=== PATIENT | male | born 1950 | race African-American/Black ===

== ENCOUNTER 2024-08-02 10:33 | Inpatient (IN) | payer MEDICARE, OTHER ==
[~2024-08-02] VITALS: Ht 172.7 cm; Wt 80.2 kg
[~2024-08-02 10:33] MED LIST: 2 ANTIBIOTICS PO; HTN MED PO
[2024-08-02] MEDS ORDERED: SODIUM BICARBONATE 50 MEQ/50 ML VIAL ONE (10:44)
[2024-08-02] MEDS ORDERED: NITROGLYCERIN 50 MG/D5% WATER 250 ML ONE (10:44)
[2024-08-02] MEDS ORDERED: IOHEXOL 300 MG/ML 100 ML VIAL ONE (10:44)
[2024-08-02] MEDS ORDERED: HEPARIN SODIUM 1000 UNITS/NS 1,000 ML ONE (10:44)
[2024-08-02] MEDS ORDERED: VERAPAMIL HCL 2.5 MG/ML 2 ML VIAL ONE (10:44)
[2024-08-02] MEDS ORDERED: LIDOCAINE/PF 1% 30 ML VIAL ONE (10:44)
[2024-08-02] MEDS ORDERED: HEPARIN SODIUM,PORCINE 5,000 UNITS/ML VIAL ONE (10:45)
[2024-08-02] MEDS ORDERED: TICAGRELOR 90 MG TABLET ONE (10:45)
[2024-08-02] MEDS: HEPARIN SODIUM,PORCINE 5,000 UNITS/ML VIAL IVP ONE (10:46)
[2024-08-02] MEDS: TICAGRELOR 90 MG TABLET PO ONE (10:46)
[2024-08-02 10:54] LABS: BASOPHILS % (AUTO) 0.9 % (0.0-2.0); EOSINOPHILS % (AUTO) 1.6 % (1.0-6.0); HEMATOCRIT 34.4 % (41-53); HEMOGLOBIN 11.3 g/dL (13.5-17.5); LYMPHOCYTES # (AUTO) 1.3 K/uL (1.0-4.8); LYMPHOCYTES % (AUTO) 14.6 % (22.0-44.0); MEAN CORPUSCULAR HEMOGLOBIN 26.9 pg (26.0-34.0); MEAN CORPUSCULAR HGB CONC 32.9 G/dL (31.0-37.0); MEAN CORPUSCULAR VOLUME 82 fL (80-100); MONOCYTES # (AUTO) 0.6 K/uL (0.1-1.0); MONOCYTES % (AUTO) 6.4 % (2.0-9.0); NEUTROPHILS # (AUTO) 6.9 K/uL (1.8-7.7); NEUTROPHILS % (AUTO) 76.5 % (40.0-70.0); PLATELET COUNT (AUTO) 353 K/uL (150-450); RED BLOOD CELL COUNT(AUTO) 4.21 MIL/uL (4.50-5.90); RED CELL DISTRIBUTION WIDTH 15.2 % (11.5-14.5)
[2024-08-02 11:04] LABS: INR 1.1 (0.9-1.1); PROTHROMBIN TIME 11.4 SEC (9.4-11.6)
[2024-08-02] MEDS ORDERED: FentaNYL CITRATE PF 100 MCG/2 ML VIAL ONE (11:05)
[2024-08-02] MEDS ORDERED: MIDAZOLAM HCL 2 MG/2 ML VIAL ONE (11:05)
[2024-08-02 11:09] VITALS: BP 162/102; PULSE 73
[2024-08-02 11:13] LABS: B-TYPE NATRIURETIC PEPTIDE 129 pg/mL (0-100)
[2024-08-02 11:14] LABS: ANION GAP 12 mmol/L (8-16); CALCIUM, TOTAL 9.7 mg/dL (8.8-10.5); CARBON DIOXIDE 26 mmol/L (22-29); CHLORIDE 103 mmol/L (98-107); CREATININE 0.99 mg/dL (0.60-1.30); GLOMERULAR FILTR. RATE CALC > 60 mL/min (>60); GLUCOSE,RANDOM 173 mg/dL (70-110); POTASSIUM 4.5 mmol/L (3.5-5.1); SODIUM SERUM 141 mmol/L (136-145); UREA NITROGEN, BLOOD 18 mg/dL (7-18)
[2024-08-02] MEDS ORDERED: PHENYLEPHRINE HCL IN 0.9% NACL 400 MCG/10 ML SYRINGE IVP ONE (11:27)
[2024-08-02] MEDS ORDERED: MORPHINE SULFATE 2 MG/ML SYRINGE IVP PRN (11:30)
[2024-08-02] MEDS ORDERED: ONDANSETRON HCL 4 MG/2 ML VIAL IVP PRN (11:30)
[2024-08-02 11:37] LABS: TROPONIN I-HIGH SENSITIVITY 2579 ng/L (<76)
[2024-08-02 11:40] LABS: ALANINE AMINOTRANSFERASE 19 U/L (12-78); ALBUMIN 3.2 g/dL (3.4-5.0); ALKALINE PHOSPHATASE 73 U/L (46-116); ASPARTATE AMINOTRANSFERASE 33 U/L (15-37); BILIRUBIN,TOTAL 0.2 mg/dL (0.1-1.0); CREATINE KINASE, TOTAL ONLY 160 U/L (39-308); TOTAL PROTEIN, SERUM 8.8 g/dL (6.4-8.2)
[2024-08-02] MEDS: IOHEXOL 300 MG/ML 100 ML VIAL IARTER ONE ×2 (11:48→12:38)
[2024-08-02] MEDS: LIDOCAINE 1% 30 ML/SOD BICARB 8.4% 4 ML SQ ONE (11:49)
[2024-08-02] MEDS: HEPARIN SODIUM 1000 UNITS/NS 1,000 ML IARTER ONE (11:49)
[2024-08-02] MEDS: FentaNYL CITRATE PF 100 MCG/2 ML VIAL IVP ONE (11:50)
[2024-08-02] MEDS: MIDAZOLAM HCL 2 MG/2 ML VIAL IVP ONE (11:50)
[2024-08-02] MEDS ORDERED: IOHEXOL 300 MG/ML 50 ML VIAL ONE (11:56)
[2024-08-02] MEDS: VERAPAMIL HCL 2.5 MG/ML 2 ML VIAL IARTER ONE (12:02)
[2024-08-02] MEDS: HEPARIN SODIUM,PORCINE 1,000 UNITS/ML 10 ML VIAL IARTER ONE (12:02)
[2024-08-02] MEDS: NITROGLYCERIN/D5W 50 MG/250 ML IV BOTTLE IARTER ONE (12:08)
[2024-08-02] MEDS: HEPARIN SODIUM,PORCINE 1,000 UNITS/ML 10 ML VIAL IVP ONE ×2 (12:21→12:22)
[2024-08-02] MEDS: IOHEXOL 300 MG/ML 50 ML VIAL IARTER ONE (12:38)
[2024-08-02 13:19] VITALS: BP 149/115; PULSE 102
[2024-08-02] MEDS: DOCUSATE SODIUM 100 MG CAPSULE PO SCH (20:13)
[2024-08-02] MEDS: TICAGRELOR 90 MG TABLET PO SCH (20:13)
[2024-08-02] MEDS: CARVEDILOL 6.25 MG TABLET PO SCH (20:13)
[2024-08-02 21:34] VITALS: BP 139/84; PULSE 82; RESP 19; TEMP 98.7; O2SAT 99
[2024-08-02] MEDS: CHLORHEXIDINE GLUCONATE 2% TOWELETTE [2'S/6'S] TP SCH (23:48)
[2024-08-03] VITALS (7 sets, daily range): BP systolic 128–178; BP diastolic 64–102; PULSE 74–85; RESP 18–19; TEMP 98–99.5; O2SAT 94–99
[2024-08-03] MEDS ORDERED: TAMS0.4C94 PO (02:25)
[2024-08-03] MEDS ORDERED: TICA90TA PO (02:31)
[2024-08-03] MEDS ORDERED: RISP0.2515 PO (02:59)
[2024-08-03] MEDS ORDERED: CARV6.2534 PO (02:59)
[2024-08-03] MEDS ORDERED: POTA-206 PO (02:59)
[2024-08-03] MEDS ORDERED: LOSA-382 PO (02:59)
[2024-08-03] MEDS ORDERED: OXCA300T70 PO (02:59)
[2024-08-03] MEDS ORDERED: FURO20 PO (02:59)
[2024-08-03] MEDS ORDERED: NIFE-40 PO (02:59)
[2024-08-03] MEDS ORDERED: EZET10TA57 PO (02:59)
[2024-08-03] MEDS ORDERED: ASPI-1450 PO (02:59)
[2024-08-03] MEDS ORDERED: MULT-248 PO (02:59)
[2024-08-03] MEDS ORDERED: ATOR-2 PO (02:59)
[2024-08-03] MEDS ORDERED: FERR325T27 PO (02:59)
[2024-08-03] MEDS ORDERED: AMIO100T4 PO (02:59)
[2024-08-03] MEDS ORDERED: LEVE1000 PO (02:59)
[2024-08-03] MEDS ORDERED: PHEN100C10 PO (02:59)
[2024-08-03 06:44] LABS: ANION GAP 11 mmol/L (8-16); CALCIUM, TOTAL 9.4 mg/dL (8.8-10.5); CARBON DIOXIDE 22 mmol/L (22-29); CHLORIDE 106 mmol/L (98-107); CREATININE 0.84 mg/dL (0.60-1.30); GLOMERULAR FILTR. RATE CALC > 60 mL/min (>60); GLUCOSE,RANDOM 155 mg/dL (70-110); POTASSIUM 3.9 mmol/L (3.5-5.1); SODIUM SERUM 139 mmol/L (136-145); UREA NITROGEN, BLOOD 16 mg/dL (7-18)
[2024-08-03 06:47] LABS: BASOPHILS % (AUTO) 0.3 % (0.0-2.0); EOSINOPHILS % (AUTO) 0.2 % (1.0-6.0); HEMATOCRIT 35.6 % (41-53); HEMOGLOBIN 11.6 g/dL (13.5-17.5); LYMPHOCYTES # (AUTO) 2.1 K/uL (1.0-4.8); LYMPHOCYTES % (AUTO) 15.8 % (22.0-44.0); MEAN CORPUSCULAR HEMOGLOBIN 26.6 pg (26.0-34.0); MEAN CORPUSCULAR HGB CONC 32.7 G/dL (31.0-37.0); MEAN CORPUSCULAR VOLUME 81 fL (80-100); MONOCYTES # (AUTO) 1.2 K/uL (0.1-1.0); MONOCYTES % (AUTO) 8.8 % (2.0-9.0); NEUTROPHILS # (AUTO) 9.8 K/uL (1.8-7.7); NEUTROPHILS % (AUTO) 74.9 % (40.0-70.0); PLATELET COUNT (AUTO) 327 K/uL (150-450); RED BLOOD CELL COUNT(AUTO) 4.38 MIL/uL (4.50-5.90); RED CELL DISTRIBUTION WIDTH 15.7 % (11.5-14.5); WHITE BLOOD COUNT (AUTO) 13.2 K/uL (4.5-11.0)
[2024-08-03 07:28] LABS: CHOL/HDL RATIO 2.5 (4.2-7.3); CHOLESTEROL 150 mg/dL (131-200); HDL CHOLESTEROL 61 mg/dL (40-60); LDL CHOL (CALC.) 71 mg/dL (0-130); TRIGLYCERIDES 88 mg/dL (15-150)
[2024-08-03 07:45] LABS: TROPONIN I-HIGH SENSITIVITY > 25000 ng/L (<76)
[2024-08-03] MEDS: LOSARTAN POTASSIUM 25 MG TABLET PO SCH (07:52)
[2024-08-03] MEDS: ATORVASTATIN CALCIUM 40 MG TABLET PO SCH (07:52)
[2024-08-03] MEDS: ASPIRIN 81 MG DR TABLET PO SCH (07:52)
[2024-08-03] MEDS: PANTOPRAZOLE SODIUM 40 MG/VIAL IVP SCH (07:52)
[2024-08-03] MEDS: HydrALAZINE HCL 20 MG/ML VIAL IVP PRN (08:48)
[2024-08-03] MEDS: ACETAMINOPHEN 325 MG TABLET PO PRN (08:52)
[2024-08-03] MEDS ORDERED: LEVE-71 PO (12:42)
[2024-08-03 15:33] LABS: APPEARANCE,URINE TURBID (CLEAR); BILIRUBIN,URINE NEGATIVE (NEGATIVE); COLOR,URINE LIGHT ORANGE (YELLOW); GLUCOSE, URINE (UA) NEGATIVE (NEGATIVE); KETONES,URINE NEGATIVE (NEGATIVE); LEUKOCYTE ESTERASE ,URINE LARGE (NEGATIVE); NITRATE,URINE POSITIVE (NEGATIVE); OCCULT BLOOD,URINE MODERATE (NEGATIVE); PH,URINE 5.5 (5.0-8.0); PROTEIN,URINE 100-200,SEE CONFIRM mg/dL (NEGATIVE); SPECIFIC GRAVITIY, URINE 1.019 (1.003-1.030); UROBILINOGEN,URINE <=1.0 mg/dL (<=1.0)
[2024-08-03 16:09] LABS: BACTERIA,URINE Moderate /HPF (None Seen); SQUAMOUS EPITHELIAL CELL,UR Few /LPF (None Seen); WBC,URINE >100 /HPF (0-5)
[2024-08-03 16:50] LABS: SULFOSALICYLIC ACID,URINE 1+ (Negative)
[2024-08-03] MEDS: CARVEDILOL 12.5 MG TABLET PO SCH (20:47)
[2024-08-04 06:08] VITALS: BP 99/68; PULSE 68; RESP 16; TEMP 98.1; O2SAT 98
[2024-08-04 07:41] VITALS: BP 108/68; PULSE 70; RESP 18; TEMP 98.4; O2SAT 98
[2024-08-04] MEDS: EMPAGLIFLOZIN 10 MG TABLET PO SCH (08:13)
[2024-08-04] MEDS: LOSARTAN POTASSIUM 25 MG TABLET PO SCH (08:14)
[2024-08-04] MEDS: SPIRONOLACTONE 25 MG TABLET PO SCH (08:16)
[2024-08-04] MEDS: *CLINICAL-LEVOFLOXACIN IVPB DOSING CLINICAL ONE (09:43)
[2024-08-04] MEDS ORDERED: LEVOFLOXACIN 500 MG TABLET PO ONE (09:45)
[2024-08-04 10:05] LABS: BASOPHILS % (AUTO) 0.2 % (0.0-2.0); EOSINOPHILS % (AUTO) 0.8 % (1.0-6.0); HEMATOCRIT 33.9 % (41-53); HEMOGLOBIN 11.2 g/dL (13.5-17.5); LYMPHOCYTES # (AUTO) 1.7 K/uL (1.0-4.8); LYMPHOCYTES % (AUTO) 17.1 % (22.0-44.0); MEAN CORPUSCULAR HEMOGLOBIN 26.7 pg (26.0-34.0); MEAN CORPUSCULAR VOLUME 81 fL (80-100); MONOCYTES # (AUTO) 1.1 K/uL (0.1-1.0); MONOCYTES % (AUTO) 10.8 % (2.0-9.0); NEUTROPHILS % (AUTO) 71.1 % (40.0-70.0); PLATELET COUNT (AUTO) 302 K/uL (150-450); RED BLOOD CELL COUNT(AUTO) 4.19 MIL/uL (4.50-5.90); RED CELL DISTRIBUTION WIDTH 15.5 % (11.5-14.5); WHITE BLOOD COUNT (AUTO) 9.9 K/uL (4.5-11.0)
[2024-08-04] MEDS ORDERED: SODIUM CHLORIDE 0.9% 250 ML IV ONE (10:15)
[2024-08-04] MEDS: LEVOFLOXACIN 500 MG/D5% WATER 100 ML IV SCH (10:21)
[2024-08-04 10:38] LABS: TROPONIN I-HIGH SENSITIVITY > 25000 ng/L (<76)
[2024-08-04 11:43] VITALS: BP 106/58; PULSE 68; RESP 18; TEMP 98.4; O2SAT 99
[2024-08-04 15:25] VITALS: BP 115/6; PULSE 74; RESP 16; TEMP 98.8; O2SAT 99
[2024-08-04 20:44] VITALS: BP 107/63; PULSE 72; RESP 17; TEMP 99; O2SAT 97
[2024-08-04 23:28] VITALS: BP 103/61; PULSE 67; RESP 16; TEMP 98.9; O2SAT 100
[2024-08-05 03:27] VITALS: BP 106/60; PULSE 74; RESP 18; TEMP 98.9; O2SAT 99
[2024-08-05 07:29] LABS: BASOPHILS % (AUTO) 0.4 % (0.0-2.0); EOSINOPHILS % (AUTO) 0.8 % (1.0-6.0); HEMATOCRIT 32.8 % (41-53); HEMOGLOBIN 10.8 g/dL (13.5-17.5); LYMPHOCYTES # (AUTO) 1.8 K/uL (1.0-4.8); LYMPHOCYTES % (AUTO) 20.6 % (22.0-44.0); MEAN CORPUSCULAR HEMOGLOBIN 26.7 pg (26.0-34.0); MEAN CORPUSCULAR HGB CONC 32.9 G/dL (31.0-37.0); MEAN CORPUSCULAR VOLUME 81 fL (80-100); MONOCYTES # (AUTO) 0.9 K/uL (0.1-1.0); MONOCYTES % (AUTO) 10.7 % (2.0-9.0); NEUTROPHILS # (AUTO) 5.8 K/uL (1.8-7.7); NEUTROPHILS % (AUTO) 67.5 % (40.0-70.0); PLATELET COUNT (AUTO) 288 K/uL (150-450); RED BLOOD CELL COUNT(AUTO) 4.03 MIL/uL (4.50-5.90); RED CELL DISTRIBUTION WIDTH 15.1 % (11.5-14.5); WHITE BLOOD COUNT (AUTO) 8.5 K/uL (4.5-11.0)
[2024-08-05 07:57] LABS: ANION GAP 14 mmol/L (8-16); CALCIUM, TOTAL 8.2 mg/dL (8.8-10.5); CARBON DIOXIDE 21 mmol/L (22-29); CHLORIDE 104 mmol/L (98-107); CREATININE 1.04 mg/dL (0.60-1.30); GLOMERULAR FILTR. RATE CALC > 60 mL/min (>60); GLUCOSE,RANDOM 121 mg/dL (70-110); POTASSIUM 3.7 mmol/L (3.5-5.1); SODIUM SERUM 139 mmol/L (136-145); UREA NITROGEN, BLOOD 15 mg/dL (7-18)
[2024-08-05 08:00] VITALS: BP 113/58; PULSE 73; RESP 18; TEMP 98.3; O2SAT 100
[2024-08-05 08:22] LABS: TROPONIN I-HIGH SENSITIVITY > 25000 ng/L (<76)
[2024-08-05 11:20] VITALS: BP_SYST 101; BP_SYST 119; BP_DIAS 60; BP_DIAS 79; PULSE 65; PULSE 70; RESP 16; RESP 18; TEMP 98; O2SAT 98
[2024-08-05] MEDS: LevETIRAcetam 500 MG TABLET PO ONE (14:30)
[2024-08-05] MEDS: PHENYTOIN 50 MG CHEWABLE TABLET PO SCH (14:31)
== END 2024-08-05 15:10 | DRG 321 ==
LOC: EMS 10:33 → EDBD 11:26 → EDH 11:26 → 5S 21:20
PROVIDERS: ADMIT Internal Medicine; ATTEND Internal Medicine
PROC: 027035Z Dilation of Coronary Artery, One Artery with Two Drug-eluting Intraluminal Devices, Percutaneous Approach (ICD-10-PCS; principal; 2024-08-02)
PROC: B240ZZ3 Ultrasonography of Single Coronary Artery, Intravascular (ICD-10-PCS; 2024-08-02)
PROC: 4A023N7 Measurement of Cardiac Sampling and Pressure, Left Heart, Percutaneous Approach (ICD-10-PCS; 2024-08-02)
PROC: B2111ZZ Fluoroscopy of Multiple Coronary Arteries using Low Osmolar Contrast (ICD-10-PCS; 2024-08-02)
DX: T82.855A Stenosis of coronary artery stent, initial encounter (principal); I21.09 ST elevation (STEMI) myocardial infarction involving other coronary artery of anterior wall; I50.23 Acute on chronic systolic (congestive) heart failure; N39.0 Urinary tract infection, site not specified; R65.10 Systemic inflammatory response syndrome (SIRS) of non-infectious origin without acute organ dysfunction; I25.10 Atherosclerotic heart disease of native coronary artery without angina pectoris; D64.9 Anemia, unspecified; I11.0 Hypertensive heart disease with heart failure; M79.81 Nontraumatic hematoma of soft tissue; I48.91 Unspecified atrial fibrillation; Z66 Do not resuscitate; S30.1XXA Contusion of abdominal wall, initial encounter; X58.XXXA Exposure to other specified factors, initial encounter; Z95.5 Presence of coronary angioplasty implant and graft; Z86.73 Personal history of transient ischemic attack (TIA), and cerebral infarction without residual deficits; Y93.89 Activity, other specified; Y92.89 Other specified places as the place of occurrence of the external cause; Y99.8 Other external cause status
CPT/HCPCS: 71045; 75960; 80048; 80053; 80061; 81001; 81002; 82550; 83036; 83880; 84484; 85025; 85610; 85730; 87081; 87086; 87186; 92920; 92928; 93005; 93306; 97116; 97163; 97530; 99285; C9113; J0360; J1644; J1956; J2250; J3010; J3490; J7050; Q9967; 36415-L1; 36415-TC; Z7610